=== PATIENT | male | born 1950 | race Caucasian/White ===

== ENCOUNTER → 2020-08-10 | Outpatient (CLI) | payer MEDICARE ==
[~2020-08-10] MED LIST: AMLO-187 PO; ASPI-630 PO; ATOR20TA58 PO; CARB200T PO; HYDR-3164 PO; LISI10TA2 PO; MELO15TA6 PO
== END ==
LOC: MERGE 10:24 → LAB 10:24
PROVIDERS: ATTEND Surgery
DX: Z01.812 Encounter for preprocedural laboratory examination (principal); Z20.828 Contact with and (suspected) exposure to other viral communicable diseases
CPT/HCPCS: U0003

== ENCOUNTER 2020-08-13 07:58 | Day surgery (SDC) | payer MEDICARE ==
[~2020-08-13] VITALS: Ht 177.8 cm; Wt 83.9 kg
[~2020-08-13 07:58] MED LIST changes: -HYDR-3164 PO; +HYDROmorphone 2 MG/ML VIAL IV PRN; +IV RINGERS,LACTATED 1000ML 1,000 ML IV SCH; +LIDOCAINE 1% PF 2 ML VIAL. ID PRN; +MORPHINE SULFATE 2 MG/ML VIAL. IV PRN; +ONDANSETRON PF 4 MG/2 ML VIAL. IV PRN; +PROCHLORPERAZINE 10 MG/2 ML VIAL. IV PRN; +fentaNYL PF VIAL 100 MCG/2 ML VIAL IV PRN
[2020-08-13] MEDS ORDERED: DEXAMETHASONE SOD PHOS 4 MG/ML VIAL ONE (08:34)
[2020-08-13] MEDS ORDERED: fentaNYL PF VIAL 100 MCG/2 ML VIAL ONE (08:34)
[2020-08-13] MEDS ORDERED: PROPOFOL 10 MG/ML (20ML) VIAL. IV ONE (08:34)
[2020-08-13] MEDS ORDERED: LIDOCAINE 2% PF 5 ML VIAL. ONE (08:34)
[2020-08-13] MEDS ORDERED: ONDANSETRON PF 4 MG/2 ML VIAL. ONE (08:34)
[2020-08-13 08:37] LABS: BASO # 0.1 x10^3/uL (0.0-0.2); BASO % 1 % (0-3); EOS # 0.2 x10^3/uL (0.0-0.7); EOS % 5 % (0-3); HEMATOCRIT 40.9 % (39.0-53.0); HEMOGLOBIN 13.7 g/dL (13.0-17.5); LYMPH # 1.8 x10^3/uL (1.0-4.8); LYMPH % 34 % (24-48); MEAN CORPUSCULAR HEMOGLOBIN 31 pg (25-35); MEAN CORPUSCULAR HGB CONC 34 g/dL (31-37); MEAN CORPUSCULAR VOLUME 93 fL (79-100); MONO # 0.4 x10^3/uL (0.0-1.1); MONO % 8 % (0-9); NEUT # 2.8 x10^3/uL (1.8-7.7); NEUT % 53 % (31-73); PLATELET COUNT 239 x10^3/uL (140-400); RED BLOOD COUNT 4.39 x10^6/uL (4.30-5.70); RED CELL DISTRIBUTION WIDTH 13.3 % (11.5-14.5); WHITE BLOOD COUNT 5.2 x10^3/uL (4.0-11.0)
[2020-08-13 08:48] LABS: CALCIUM 8.7 mg/dL (8.5-10.1); GFR 73.5
[2020-08-13] MEDS ORDERED: silver sulfADIAZINE 1% CREAM 25GM TUBE. TP ONE (09:34)
[2020-08-13] MEDS ORDERED: BUPIVACAINE MPF 0.25% 30 ML VIAL. ONE (09:35)
[2020-08-13] MEDS ORDERED: LIDOCAINE 1% Multi-Dose 20 ML VIAL. ONE (10:18)
--- NOTE | 2020-08-13 10:41 | PDOC ---
BRIEF OPERATIVE NOTE Date: Aug 13, 2020 Pre-Op Diagnosis Right posterior calf wound Post-Op Diagnosis Same Procedure Performed Right posterior calf wound excision, packed open (Wound measurements 1x3cm) Surgeon Jose Guadalupe Muir MD Recorder [employer]ity [employer]ing AMAN Cline Anesthesia Type: MAC Blood Loss 5mL Specimens Obtained Wound culture Findings Wound Measurements 1x3cm Complications None Operative Note See dictated op note MYCHAL ARDON Aug 13, 2020 10:41
[2020-08-13] MEDS ORDERED: HYDROcodone/APAP 5/325MG 1 TAB TABLET PO PRN (10:45)
--- NOTE | 2020-08-13 11:08 | OP ---
DATE OF SURGERY: 08/13/2020 PREOPERATIVE DIAGNOSIS: Nonhealing wounds, right posterior calf following venous ablation procedure. POSTOPERATIVE DIAGNOSIS: Nonhealing wounds, right posterior calf following venous ablation procedure. OPERATION PERFORMED: Exploration of wound with excision measuring 1 x 3 cm. SURGEON: Fransisco Muir MD. SUPERVISOR FISH PROCESSING: AMAN Cline. ANESTHESIA: Local with monitored sedation. INDICATIONS: This is a 70-year-old gentleman who underwent endovenous ablation type procedure, I believe with glue. He has developed an abscess, which is refractory to healing over the past few months. I presume that there is a foreign substance that is producing a nidus for continued infection and nonhealing. I recommended excision of the wound. He understood the operation, risks, and benefits and wished to proceed. OPERATIVE FINDINGS: Limited excision of the wound was carried out at first. There appeared to be some synthetic type material below the open wound, which was excised down to the muscle fascia. There appeared to be a fair amount of undermining and necrotic material in this area that was undermined. This required further skin excision to viable healthy bleeding tissue. Using a curette, the necrotic material was removed down again to the underlying muscle fascia. This created a defect approximately 1 x 3 cm. The remaining wound appeared well vascularized and infection free. It was irrigated copiously and then packed with saline moistened gauze, covered with Xeroform, Kerlix and an Silvestre wrap. The patient will be seen tomorrow for followup. He will be instructed on wound care. This wound will need to close by secondary intention. Cultures were obtained. He tolerated the procedure well and was taken to the recovery room in satisfactory condition. FRANSISCO MUIR MD DR: CANDACE/millie JOB#: [id number] / [id number]
[2020-08-13 11:25] VITALS: BP 159/89
[2020-08-13] MEDS ORDERED: HYDR-3164 PO (11:25)
[2020-08-13] MEDS ORDERED: HYDROcodone/APAP 5/325MG 1 TAB TABLET PO ONE (11:30)
== END 2020-08-13 12:10 | disposition home or self-care (01) ==
LOC: SURG 07:58
PROVIDERS: ATTEND Surgery
DX: S81.801A Unspecified open wound, right lower leg, initial encounter (principal); I10 Essential (primary) hypertension; E78.00 Pure hypercholesterolemia, unspecified; Z90.49 Acquired absence of other specified parts of digestive tract; Z98.890 Other specified postprocedural states; Z72.89 Other problems related to lifestyle; Z79.82 Long term (current) use of aspirin; Z79.899 Other long term (current) drug therapy; Z87.891 Personal history of nicotine dependence; X58.XXXA Exposure to other specified factors, initial encounter; Y93.89 Activity, other specified; Y92.89 Other specified places as the place of occurrence of the external cause; Y99.8 Other external cause status
CPT/HCPCS: 11044; 36415; 80048; 85025; 87071; 87075; 87077; 87186; A4461; J0690; J2704; J3010; J3490; J7120; J1100; J2405